=== PATIENT | male | born 1945 | race Caucasian/White ===

== ENCOUNTER 2017-06-25 07:24 | Day surgery (SDC) | payer OTHER ==
[2017-06-25] MEDS ORDERED: LIDOCAINE 1% 2 ML INJ ID PRN (07:30)
[2017-06-25] MEDS ORDERED: LR 1,000 ML IV ONE (07:30)
--- NOTE | 2017-06-25 08:05 | PDANEPAE ---
ANE History of Present Illness 71 year old male with PMHx of essential tremor and GERD presents for umbilical hernia repair. ANE Past Medical History - Cardiovascular History Hx Hypertension: No Hx Arrhythmias: No Hx Chest Pain: No Hx Coronary Artery / Peripheral Vascular Disease: No Hx CHF / Valvular Disease: No Hx Palpitations: No - Pulmonary History Hx COPD: Yes Hx Asthma/Reactive Airway Disease: No Hx Recent Upper Respiratory Infection: No Hx Sleep Apnea: No Sleep Apnea Screening Result - Last Documented: Negative Pulmonary History Comment: enviromental allergens can trigger chronic bronchitis - Neurologic History Hx Cerebrovascular Accident: No Hx Seizures: No Hx Dementia: No Neurologic History Comment: Essential tremor (familial in nature) - Endocrine History Hx Diabetes: No Hypothyroid: No Hyperthyroid: No Obesity: no - Renal History Hx Renal Disorders: No - Liver History Hx Hepatic Disorders: No - Neurological & Psychiatric Hx Hx Neurological and Psychiatric Disorders: Yes Neurological / Psychiatric History Comment: essential tremor - Cancer History Hx Cancer: Yes Cancer History Comment: skin - Congenital Disorder History Hx Congenital Disorders: Yes Congenital History Comment: tremor - GI History GERD: mild Hx Gastrointestinal Disorders: Yes Gastrointestinal History Comment: reflux,gerd - Other Health History Other Health History: lots of skin anomalies - Chronic Pain History Chronic Pain: No - Surgical History Prior Surgeries: hand surgeries metacarple repairs ANE Review of Systems Review of Systems: - Exercise capacity Exercise capacity: >=4 METS METS (RN): 4 METS ANE Patient History - Allergies Allergies/Adverse Reactions: No Known Allergies Allergy (Verified 06/22/17 16:43) - Home Medications Home medications: home medication list seen and reviewed - NPO status NPO Status: no food or drink >8 hours - Anes Hx Anes Hx: no prior problems - Smoking Hx Smoking Status: Never smoked Marijuana use: No - Alcohol Use Alcohol Use: Rarely - Family Anes Hx Family Anes Hx: neg - N/A Family Hx Anesthesia Complications: none ANE Labs/Vital Signs - Vital Signs Vital Signs: reviewed preoperatively; see RN documention for details Height: 182.88 cm Weight: 79.379 kg ANE Physical Exam - Airway Neck exam: FROM Mallampati Score: Class 3 Mouth exam: normal dental/mouth exam Mouth image: 1 - chipped inferior cutting surface - Pulmonary Pulmonary: no respiratory distress - Cardiovascular Cardiovascular: regular rate and rhythym - ASA Status ASA Status: II ANE Anesthesia Plan Anesthesia Plan: GA w LMA, MAC Total IV Anesthesia: No
[2017-06-25] MEDS ORDERED: LIDOCAINE 1% 300 MG/30 ML SDV ONE ×2 (08:25→08:43)
[2017-06-25] MEDS ORDERED: BUPIVACAINE 0.5% 30 ML SDV ONE ×2 (08:26→08:43)
[2017-06-25] MEDS ORDERED: ceFAZolin 2 GM/SWFI 2 GM/20 ML SYR IVP ONE (08:40)
--- NOTE | 2017-06-25 08:40 | PDHPUP ---
History & Physical Update H&P update statement: This history and physical update is based on an assessment of the patient which was completed after admission or registration (within 24 hours), but prior to the surgery/procedure. H&P update: H&P reviewed & patient examined, no change in patient's condition since H&P completed
[2017-06-25] MEDS ORDERED: PROPOFOL/EMULSION 500 MG/50 ML BOTTLE IV ONE (08:52)
[2017-06-25] MEDS ORDERED: fentaNYL 100 MCG/2 ML INJ ONE (08:52)
[2017-06-25] MEDS ORDERED: ONDANSETRON 4 MG/2 ML VIAL IVP PRN (09:17)
[2017-06-25] MEDS ORDERED: LR 500 ML IV PRN (09:17)
[2017-06-25] MEDS ORDERED: NALOXONE HCL 0.4 MG/ML INJ IVP PRN (09:17)
[2017-06-25] MEDS ORDERED: HYDROCODONE/APAP 5/325 TAB PO PRN (09:17)
[2017-06-25] MEDS ORDERED: fentaNYL 100 MCG/2 ML INJ IVP PRN (09:17)
--- NOTE | 2017-06-25 09:58 | POSTOPPROG ---
Post Op Note Date of Operation: 06/25/17 Surgeon: Mika Schwartz Anesthesiologist: Dr. Leslie Anesthesia: IV Sedation Pre-op Diagnosis: [facility] Post-op Diagnosis: [facility] Procedure: [facility] Inf/Abcess present in the surg proc area at time of surgery?: No EBL: Minimal
--- NOTE | 2017-06-25 11:05 | GOP ---
[f rep st] OPERATIVE REPORT DATE OF OPERATION: 06/25/2017 SURGEON: Trevon Schwartz MD ANESTHESIA: Monitored anesthetic care. ANESTHESIOLOGIST: Noel Leslie MD PREOPERATIVE DIAGNOSIS: Incarcerated umbilical hernia. POSTOPERATIVE DIAGNOSIS: Incarcerated umbilical hernia. PROCEDURE PERFORMED: Repair of the above. FINDINGS: Patient had incarcerated preperitoneal fat. No other lesions were identified. ESTIMATED BLOOD LOSS: 20 cc. INDICATIONS: A 71-year-old male with a history of umbilical bulge. Risks and benefits of the proced ure were discussed with the patient, questions were answered, and he wished to proceed. DESCRIPTION OF PROCEDURE: The patient was placed in the supine position. After the induction of nacho quate IV sedation, the patient was prepped and draped in the standard sterile fashion. Marcaine 0.5% was injected throughout the periumbilical area for local anesthesia. An infraumbilical incision was made with a #15 blade and carried down to the subcutaneous tissue with cautery and sharp dissection. The sac was carefully dissected and reduced. No other defects were identified. A Marlex mesh was trimmed to fit and secured using 0 Ethibond in a mattress fashion. Prior to tying these down, the de fect was loosely closed in a similar manner. The area was irrigated and hemostasis achieved with cau misty. The umbilicus was then tacked down using 3-0 Vicryl interrupted. The subcutaneous tissue was approximated using 3-0 Vicryl in a running fashion. Skin was closed with 5-0 Biosyn subcuticular. T he wound was sterilely dressed. The patient was taken to the post-anesthesia care unit in stable con dition. COMPLICATIONS: None. DRAINS: None. /[id number]/MODL
[2017-06-25 12:00] VITALS: BP 135/78
--- NOTE | 2017-06-25 22:56 | POSTANESTH ---
Post Anesthetic Evaluation Cardiovascular Status: Normal, Stable, Similar to Pre-Op Cond Respiratory Status: Normal, Stable, Similar to Pre-op Cond. Level of Consciousness/Mental Status: Can Participate in Eval, Alert and Oriented Pain Control: Adequate, Prn Tx Ordered Nausea/Vomiting Control: Adequate, Prn Tx Ordered Complications Possibly Related to Anesthesia: None Noted
== END 2017-06-25 11:40 | disposition home or self-care (01) ==
LOC: FSGY 07:24
PROVIDERS: ATTEND Surgery
PROC: 0WUF0JZ Supplement Abdominal Wall with Synthetic Substitute, Open Approach (ICD-10-PCS; principal; 2017-06-25 09:15)
DX: K42.9 Umbilical hernia without obstruction or gangrene (principal); J44.9 Chronic obstructive pulmonary disease, unspecified; G25.0 Essential tremor
CPT/HCPCS: C1781; J0690; J2704; J3010